=== PATIENT | male | born 1980 | race Caucasian/White ===

== ENCOUNTER 2021-08-23 08:21 | Emergency (ER) | payer OTHER ==
[~2021-08-23] VITALS: Ht 185.4 cm; Wt 134.4 kg
[2021-08-23 08:26] VITALS: BP 129/90
[2021-08-23] MEDS ORDERED: ASPIRIN CHEWABLE 81 MG TABLET. ONE (08:38)
[2021-08-23] MEDS ORDERED: HEPARIN for SUB-Q USE 5,000 UNIT/ML VIAL. SQ ONE (08:38)
[2021-08-23] MEDS ORDERED: HEPARIN 25,000UTS/250ML PREMIX 250 ML IV ONE ×2 (08:38→08:45)
[2021-08-23] MEDS ORDERED: ONDANSETRON PF 4 MG/2 ML VIAL. ONE (08:39)
[2021-08-23] MEDS ORDERED: ONDANSETRON PF 4 MG/2 ML VIAL. IVP ONE ×2 (08:45)
[2021-08-23] MEDS ORDERED: ASPIRIN CHEWABLE 81 MG TABLET. PO ONE (08:45)
[2021-08-23] MEDS ORDERED: HEPARIN for IV BOLUS 10,000 UNIT/10 ML VIAL. IV ONE (08:45)
[2021-08-23 08:50] LABS: BASO # 0.3 x10^3/uL (0.0-0.2); BASO % 4 % (0-3); EOS # 0.3 x10^3/uL (0.0-0.7); EOS % 4 % (0-3); HEMATOCRIT 47.5 % (39.0-53.0); HEMOGLOBIN 16.1 g/dL (13.0-17.5); LYMPH # 2.7 x10^3/uL (1.0-4.8); LYMPH % 38 % (24-48); MEAN CORPUSCULAR HEMOGLOBIN 32 pg (25-35); MEAN CORPUSCULAR HGB CONC 34 g/dL (31-37); MEAN CORPUSCULAR VOLUME 94 fL (79-100); MONO # 0.5 x10^3/uL (0.0-1.1); MONO % 7 % (0-9); NEUT # 3.4 x10^3uL (1.8-7.7); NEUT % 47 % (31-73); PLATELET COUNT 312 x10^3/uL (140-400); RED BLOOD COUNT 5.08 x10^6/uL (4.30-5.70); RED CELL DISTRIBUTION WIDTH 13.3 % (11.5-14.5); WHITE BLOOD COUNT 7.2 x10^3/uL (4.0-11.0)
--- NOTE | 2021-08-23 08:54 | PHYS DOC ---
General Adult EDM: Chief Complaint: CHEST PAIN HPI: HPI: Patient is a 41-year-old male coming in for chest pain that started 1 hour ago, started while he was driving. Patient states that last night when he went to bed he had some tingling in his left arm. Still has a tingling his left arm but also complained of tingling in his legs. Has had some lightheadedness and sweating. He also has had some nausea. Patient denies any cardiac history of has a family history of ND in his father. Patient smokes 1-1/2 to 2 packs of cigarettes daily, denies any alcohol or drugs. Patient states he is a history of hypertension and takes medications but is unsure what they are. Has not taken anything for the pain prior to arrival. Patient does states he has a history of gastric ulcers and takes Nexium daily. Denies any recent melena or blood in stools. Review of Systems: Review of Systems: All other systems within normal limits except for as noted in the HPI Current Medications: Current Meds: Current Medications Medications (Trade) Dose Ordered Sig/Armando Start Time Stop Time Status Last Admin Dose Admin Aspirin (Aspirin Chewable) 81 mg STK-MED ONCE 08/23/21 08:38 08/23/21 08:38 DC Fentanyl Citrate (Fentanyl 2ml Vial) 50 mcg 1X ONCE 08/23/21 08:45 08/23/21 08:48 DC Heparin Sodium (Porcine) (Heparin Sodium) 5,000 unit STK-MED ONCE 08/23/21 08:38 08/23/21 08:38 DC Heparin Sodium/ Dextrose 250 ml @ As Directed STK-MED ONCE 08/23/21 08:38 08/23/21 08:39 DC Ondansetron HCl (Zofran) 4 mg 1X ONCE 08/23/21 08:45 08/23/21 08:48 DC Allergies: Allergies: Allergies Coded Allergies Type Severity Reaction Last Updated Verified No Known Drug Allergies 08/23/21 No Physical Exam: PE: Constitutional: Well developed, well nourished, no acute distress, non-toxic appearance. [] HENT: Normocephalic, atraumatic, bilateral external ears normal, nose normal. [] Eyes: PERRLA, conjunctiva normal, no discharge. [] Neck: No rigidity, supple, no stridor. [] Cardiovascular: Sinus bradycardia, symmetric radial pulses, brisk cap refill Lungs & Thorax: Non labored symmetric respirations, no tachypnea or respiratory distress [] Abdomen: Soft, nondistended. Skin: Warm, diaphoretic, no erythema, no rash. [] Back: Unremarkable Extremities: No deformities, range of motion grossly intact, no lower extremity edema [] Neurologic: Alert and oriented X 3, no focal deficits noted. [] Psychologic: Affect normal, judgement normal, mood normal. [] EKG: EKG: Sinus rhythm, heart rate 47, inferior STEMI[] Radiology/Procedures: Radiology/Procedures: [] Heart Score: C/O Chest Pain: N/A Risk Factors: Risk Factors: DM, Current or recent (<one month) smoker, HTN, HLP, family history of CAD, obesity. Risk Scores: Score 0 - 3: 2.5% MACE over next 6 weeks - Discharge Home Score 4 - 6: 20.3% MACE over next 6 weeks - Admit for Clinical Observation Score 7 - 10: 72.7% MACE over next 6 weeks - Early Invasive Strategies Course & Med Decision Making: Course & Med Decision Making STEMI activated upon EKG interpretation. Contacted prep room supervisor, Dr. Whittaker who will take patient to Audio Visual Coordinator. EMS onsite to take another transfer, will redirect and have him take the STEMI first. Patient accepted by hospitalist, Dr. Wiggins. Iliana Disclaimer: Iliana Disclaimer: This electronic medical record was generated, in whole or in part, using a voice recognition dictation system. Departure Departure: Impression: Primary Impression: STEMI (ST elevation myocardial infarction) Disposition: 02 SHORT TERM HOSPITAL Condition: CRITICAL Referrals: ELBA FOX MD (PCP) ROCÍO LARRY MD Aug 23, 2021 08:54
[2021-08-23 08:59] LABS: CALCIUM 9.1 mg/dL (8.5-10.1); CREATININE 1.1 mg/dL (0.7-1.3); GFR 74.1
[2021-08-23 09:05] LABS: ALBUMIN 3.9 g/dL (3.4-5.0); ALBUMIN/GLOBULIN RATIO 1.3 (1.0-1.7); MAGNESIUM 2.1 mg/dL (1.8-2.4); TOTAL BILIRUBIN 0.4 mg/dL (0.2-1.0); TOTAL PROTEIN 6.8 g/dL (6.4-8.2)
--- NOTE | 2021-08-23 19:39 | EKG ---
[address] [address] Test Date: 2021-08-23 Test Time: 08:30:10 Pat Name: KESHA GALDAMEZ Department: Room: Gender: M Director Emergency: : 1980 Requested By: ROCÍO LARRY Order Number: [id number] Reading MD: Jose Short Measurements Intervals [place] Rate: 45 P: LA: QRS: 62 QRSD: 112 T: 92 QT: 410 QTc: 357 Interpretive Statements COMPLETE HEART BLOCK WITH JUNCTIONAL ESCAPE RHYTHM ACUTE INFERIOR AND POSTERIOR WALL STEMI Electronically Signed On 08-27-2021 18:48:21 CDT by Jose Short
== END 2021-08-23 08:47 | disposition short-term general hospital (02) ==
LOC: ER 08:21
DX: I21.3 ST elevation (STEMI) myocardial infarction of unspecified site (principal); I10 Essential (primary) hypertension; F17.210 Nicotine dependence, cigarettes, uncomplicated; Z87.11 Personal history of peptic ulcer disease
CPT/HCPCS: 36415; 80053; 83690; 83735; 84484; 85025; 85610; 85730; 93005; 96374; 96375; 96376; 99285; J1644; J2405; J3010; 96365